=== PATIENT | female | born 1940 | race Caucasian/White ===

== ENCOUNTER → 2018-06-20 10:39 | Outpatient (BNVA) | payer MEDICARE, SELFPAY | PROVIDERS: PCP Internal Medicine; Referring Provider Internal Medicine; Visit Provider Surgery | DX: R19.5 Other fecal abnormalities (principal); I10 Essential (primary) hypertension; K62.5 Hemorrhage of anus and rectum; Z86.010 Personal history of colon polyps | CPT/HCPCS: 99213 ==

== ENCOUNTER 2018-07-20 11:51 | Day surgery (SDC) | payer MEDICARE, SELFPAY ==
[2018-07-20 13:01] VITALS: BP 148/62; PULSE 58; RESP 16; TEMP 36.8; O2SAT 96
[2018-07-20] MEDS: Lactated Ringers 1,000 ML 30 ML IV (13:01)
--- NOTE | 2018-07-20 16:23 | W.COLOREPORT ---
Date of service: 07/20/18 Time of Service: 16:23 Colonoscopy Report Date of procedure: 07/20/18 Pre-op diagnosis general: Heme positive stool Post-op diagnosis procedure note: other (1. Normal colon to the cecum 2. Grade 2 hemorrhoids) Procedure: Colonoscopy to the cecum Surgeon: Ezra Guerrero Anesthesia proc note operative: MAC (Ole Xie CRNA; ASA 3 Mallampati class II) Estimated blood loss (mL): 1 Pathology: none sent Complications: None Disposition: same day Indications: 77-year-old woman referred for rectal bleeding and heme positive stools. Ms. Mack is well-known to me from prior encounters. She reports having had intermittent episodes of bright red blood per rectum that lasted for several weeks. This is resolved but recent fecal occult monitoring did show heme positive stool. Her last colonoscopy was a number years ago, and she had polyps at that time. She denies any abdominal pain, or rectal, anal pain. She does not have a known history of hemorrhoids. Had not had bleeding similar to this prior. She denies any upper GI symptoms she rarely has heartburn which she takes Tums for the discomfort with good effect. She does have a history of GERD for which she is taking ranitidine and has and has no problems. I reviewed the colonoscopy procedure with her, and discussed the risks of the procedure. All her questions were answered to her satisfaction. Consent was obtained to proceed with colonoscopy. Prep: Miralax/Dulcolax (Prep quality excellent) Findings: In examining the colon from the cecum to the anus, no abnormalities were noted of the colon, or rectum. She was noted to have grade 2 hemorrhoids at the anorectal junction. Procedure Description: The patient was seen in the day surgery waiting area. Her identification was confirmed, and procedure checked. She was then brought to the procedure room. Monitoring for telemetry, blood pressure, oxygen saturation, and end tidal CO2 monitoring were applied. An appropriate time out was performed to confirm, identification, allergies, medication, procedure, was performed. Sedation was titrated for affect by the RAILROAD DISPATCHER; Once adequate sedation was achieved, I performed a inspection of the external perineum, and a digitial rectal examination. No significant external abnormalities were noted. On digital rectal examination, there was no blood, no masses, good rectal tone. I advanced the colonoscope from the anus to the cecum under direct visualization. The cecum was identified by the ileal-cecal valve, and the appendiceal orifice. The scope was then withdrawn in circumferential manner from the cecum to the rectum. No abnormalites were noted in the colon. The scope was then withdrawn into the rectum, and retroflexed. No abnormalities were noted of the rectum. At the anorectal junction she was noted to have grade 2 hemorrhoids. The scope was then withdrawn, terminating the procedure. There were no complications during the procedure, and the patient tolerated the procedure well. She was returned to the day surgery recovery area in good condition. Plan: No colonic or rectal source of bleeding was identified she does have hemorrhoids which could have caused heme positive stools and be a source of miles blood.
--- NOTE | 2018-07-20 16:30 | PDOC.DSDIS_ITS ---
Discharge Plan Disposition Patient Disposition: HOME Condition: Good Discharge Details Reason For Visit: Heme positive stools Attending Provider: Ezra Guerrero Primary Care Provider: Jessica Barton Home Meds and New Rx's Prescriptions: Continue aspirin 325 mg tablet 325 mg PO PRN RF: 0 ranitidine HCl 150 MG tablet 150 mg PO PRN RF: 0 estradiol 0.5 MG tablet 0.5 mg PO DAILY RF: 0 levothyroxine 75 MCG tablet 75 mcg PO DAILY RF: 0 citalopram 40 mg Tablet 1 tab PO DAILY RF: 0 metoprolol tartrate 50 mg Tablet 50 mg PO BID RF: 0 hydrochlorothiazide 25 mg Tablet 25 mg PO DAILY RF: 0 cholecalciferol (vitamin D3) [Vitamin D3] 2,000 unit Capsule 2,000 unit PO DAILY RF: 0 Discontinued bisacodyl [Dulcolax (bisacodyl)] 5 mg tablet,delayed release (DR/EC) 10 mg PO BID Qty: 4 RF: 0 polyethylene glycol 3350 [Miralax] 17 gram/dose powder 255 g PO ONCE Qty: 255 RF: 0 Discharge Instructions Instructions: Colonoscopy (DC) Activity:: Activity as Tolerated Diet:: As Tolerated Discharge Orders Discharge Orders: Discharge Order (Routine); Ordered 07/20/18 Ordered By: Ezra Guerrero DS: Diagnosis Discharge Diagnosis (1) Heme + stool: Status: Acute Asessment and Plan: Colonoscopy performed: Colonoscopy Report Date of procedure: 07/20/18 Pre-op diagnosis general: Heme positive stool Post-op diagnosis procedure note: other (1. Normal colon to the cecum 2. Grade 2 hemorrhoids) Procedure: Colonoscopy to the cecum Surgeon: Ezra Guerrero Anesthesia proc note operative: MAC (Ole Xie CRNA; ASA 3 Mallampati class II) Estimated blood loss (mL): 1 Pathology: none sent Complications: None Disposition: same day Indications: 77-year-old woman referred for rectal bleeding and heme positive stools. Ms. Mack is well-known to me from prior encounters. She reports having had intermittent episodes of bright red blood per rectum that lasted for several weeks. This is resolved but recent fecal occult monitoring did show heme positive stool. Her last colonoscopy was a number years ago, and she had polyps at that time. She denies any abdominal pain, or rectal, anal pain. She does not have a known history of hemorrhoids. Had not had bleeding similar to this prior. She denies any upper GI symptoms she rarely has heartburn which she takes Tums for the discomfort with good effect. She does have a history of GERD for which she is taking ranitidine and has and has no problems. I reviewed the colonoscopy procedure with her, and discussed the risks of the procedure. All her questions were answered to her satisfaction. Consent was obtained to proceed with colonoscopy. Prep: Miralax/Dulcolax (Prep quality excellent) Findings: In examining the colon from the cecum to the anus, no abnormalities were noted of the colon, or rectum. She was noted to have grade 2 hemorrhoids at the anorectal junction. Procedure Description: The patient was seen in the day surgery waiting area. Her identification was confirmed, and procedure checked. She was then brought to the procedure room. Monitoring for telemetry, blood pressure, oxygen saturation, and end tidal CO2 monitoring were applied. An appropriate time out was performed to confirm, identification, allergies, medication, procedure, was performed. Sedation was titrated for affect by the CEMENT OR CONCRETE FINISHING SUPERVISOR; Once adequate sedation was achieved, I performed a inspection of the external perineum, and a digitial rectal examination. No significant external abnormalities were noted. On digital rectal examination, there was no blood, no masses, good rectal tone. I advanced the colonoscope from the anus to the cecum under direct visualization. The cecum was identified by the ileal-cecal valve, and the appendiceal orifice. The scope was then withdrawn in circumferential manner from the cecum to the rectum. No abnormalites were noted in the colon. The scope was then withdrawn into the rectum, and retroflexed. No abnormalities were noted of the rectum. At the anorectal junction she was noted to have grade 2 hemorrhoids. The scope was then withdrawn, terminating the procedure. There were no complications during the procedure, and the patient tolerated the procedure well. She was returned to the day surgery recovery area in good condition. Plan: No colonic or rectal source of bleeding was identified she does have hemorrhoids which could have caused heme positive stools and be a source of miles blood.
[2018-07-20 16:44] VITALS: BP 141/59; PULSE 60; RESP 17; TEMP 36.9; O2SAT 96
== END 2018-07-20 16:57 | disposition home or self-care (01) ==
PROVIDERS: PCP Internal Medicine; Visit Provider Surgery
PROC: 0DJD8ZZ Inspection of Lower Intestinal Tract, Via Natural or Artificial Opening Endoscopic (ICD-10-PCS; CPT 45378; principal; 2018-07-20 12:30)
DX: R19.5 Other fecal abnormalities (principal); Z87.19 Personal history of other diseases of the digestive system; K64.1 Second degree hemorrhoids; I10 Essential (primary) hypertension
CPT/HCPCS: 45378

== ENCOUNTER → 2022-04-22 13:00 | Outpatient (BNVA) | payer MEDICARE, SELFPAY | PROVIDERS: PCP Internal Medicine; Referring Provider Internal Medicine; Visit Provider Surgery | DX: K21.9 Gastro-esophageal reflux disease without esophagitis (principal) | CPT/HCPCS: 99203 ==

== ENCOUNTER 2022-05-14 12:49 | Day surgery (SDC) | payer MEDICARE, SELFPAY ==
--- NOTE | 2022-05-14 07:19 | PDOC.DSDIS_ITS ---
Discharge Plan Disposition Patient Disposition: HOME Condition: Good Discharge Details Reason For Visit: Esophagogastroduodenoscopy Attending Provider: Peng Johnson Primary Care Provider: Jessica Barton Home Meds and New Rx's Prescriptions: New pantoprazole [Protonix] 40 mg tablet,delayed release (DR/EC) 40 mg PO DAILY Qty: 90 2RF Rx Instructions: Take 1 tablet every day Continued metoprolol tartrate 50 mg tablet 100 mg PO DAILY citalopram 40 mg tablet 40 mg PO DAILY levothyroxine 75 MCG tablet 75 mcg PO DAILY cholecalciferol (vitamin D3) [Vitamin D3] 50 mcg (2,000 unit) Capsule 2,000 unit PO DAILY hydrochlorothiazide 25 mg Tablet 25 mg PO DAILY Discharge Instructions Instructions: Diet for Stomach Ulcers and Gastritis (ED), Esophagitis (GEN), P eptic Ulcer (DC) Additional Instructions: 1. If tolerated, consume a soft, low fiber diet for 1-2 days. 2[address] Do not drive, drink alcohol, operate machinery, make critical decisions, or do activities that require coordination or balance for 24 hours. 3. You may experience a sore throat for 24 to 48 hours. You may use throat lozenges or gargle with warm salt water to relieve the discomfort. 4. Because air was put into your stomach during the procedure, you may experience some belching. 5. Go directly to the emergency room if you notice any of the following: Develop chills (warm to touch), or if you have a thermometer and your temperature is above 101 Difficulty breathing or difficultly swallowing Persistent vomiting Severe abdominal pain, other than gas cramps Severe chest pain Black, tarry stools Any bleeding ? exceeding one tablespoon 6. Call your physician if the site where your intravenous was started becomes red, swollen, painful, and warm to touch. 7. Your physician has reviewed your pre-procedure medications. Please continue to take those medications as previously ordered. You will be given specific information/education regarding any changes to your medications before leaving. Referrals: Peng Johnson MD [ [facility] STAFF PHYSICIAN] - (3-4 weeks) Activity:: Activity as Tolerated Diet:: As Tolerated Discharge Orders Discharge Orders: Discharge Order (Routine); Ordered 05/14/22 Ordered By: Peng Johnson DS: Diagnosis Discharge Diagnosis (1) Duodenal ulcer: Status: Acute Asessment and Plan: Start Protonix. Take 1 tablet by mouth every day (2) Esophagitis: Status: Acute Asessment and Plan: I will contact you with biopsy results
--- NOTE | 2022-05-14 07:22 | W.PM.ENDDOP ---
Date of service: 05/14/22 Time of Service: 14:08 Endoscopy Report DATE OF PROCEDURE: 05/14/22 PRE-OP DIAGNOSIS: Gastroesophageal reflux disease POST-OP DIAGNOSIS: other (Duodenal ulcer, Vogt's esophagus) PROCEDURE: EGD SURGEON: Peng Johnson ANESTHESIA TYPE: General:No Airway ESTIMATED BLOOD LOSS: 30 PATHOLOGY: other (Random biopsies of stomach antrum and body, biopsies of Vogt's esophagus) COMPLICATIONS: None DISPOSITION: same day INDICATIONS: Babita is a 81-year-old woman with longstanding gastroesophageal reflux disease PROCEDURE DESCRIPTION: After the initiation of monitored anesthetic care, and with the assistance of a bite block, I advanced a standard gastroscope through the mouth past the hypopharynx and into the esophagus.? Under the direct vision of the scope, I advanced down the esophagus into the stomach.? Once I entered the stomach, I performed a brief inspection, followed by retroflexion towards the gastric cardia.? This appeared normal.? After that, I gently advanced the scope around the incisura angularis and examined the pylorus.? This also appeared normal.? Next, I advanced the scope through the pylorus into the duodenum.? The mucosa was pink and healthy appearing.? There was a duodenal ulcer on the anterior wall of the first portion of the duodenum. There was no visible vessel. It was not actively bleeding..? I was able to visualize bile draining into the duodenum through the ampulla Vater. ?Next, I began retracting the endoscope.? I withdrew into the stomach, where I performed random biopsies of the gastric antrum and body.? I then gently desufflated some of the stomach, and withdrew the endoscope into the distal esophagus. The Z-line was irregular at 37 cm and there was a 1.5 centimeters length of Vogt's esophagus. I performed biopsies here. ?Finally, I withdrew the scope along the length of the esophagus taking great care to examine the entirety of the mucosa.? I did not appreciate any abnormalities.
[2022-05-14 12:58] VITALS: BP 154/64; PULSE 58; RESP 18; TEMP 36.7; O2SAT 96
--- NOTE | 2022-05-14 13:09 | W.ANESPRE ---
General Info Date of Service Date Performed: 05/14/22 Height: 5 ft 7 in Weight: 75.807 kg Body Mass Index (BMI): 26.2 Surgical Procedure: Operation Date: 05/14/22 14:35 Proposed Procedure Side Surgeon p Gastroscopy Peng Johnson MD Meds Allergies and Home Medications Allergies Allergy/AdvReac Type Severity Reaction Status Date / Time Environmental Allergy Mild Rhinitis Uncoded 05/13/22 11:09 metals AdvReac Severe Skin Rash Uncoded 05/13/22 11:09 Home Medication Medication Instructions Recorded levothyroxine 75 mcg tablet 75 mcg PO DAILY 11/21/14 hydrochlorothiazide 25 mg tablet 25 mg PO DAILY 07/18/18 citalopram 40 mg tablet 40 mg PO DAILY 04/22/22 metoprolol tartrate 50 mg tablet 100 mg PO DAILY 04/22/22 cholecalciferol (vitamin D3) 50 2,000 unit PO DAILY 05/13/22 mcg (2,000 unit) capsule (Vitamin D3) pantoprazole 40 mg tablet,delayed 40 mg PO DAILY duodenal ulcer #90 05/14/22 release (Protonix) tabs Current Visit Medications: Current Medications Generic Name Dose Route Start Last Admin Trade Name Freq PRN Reason Stop Dose Admin Hyoscyamine Sulfate 0.125 mg 05/14/22 07:21 Hyoscyamine 0.125 Mg Sl/Oral/Chew SL DIRECTED PRN Ringer's Solution 1,000 mls @ 80 mls/hr 05/14/22 06:00 IV 06/12/22 23:59 INFUSION MURIEL IV Miscellaneous Supplies 1 each 05/14/22 06:00 Iv Access IV 06/12/22 23:59 DIRECTED MURIEL Ondansetron HCl 4 mg 05/14/22 07:21 Ondansetron 4 Mg/2 Ml Vial IVP Q4H PRN PRN Nausea / Vomiting Sodium Chloride 0 ml 05/14/22 06:00 Normal Saline Flush 10 Ml Syr IV 06/12/22 23:59 PRN PRN Sodium Chloride 0 ml 05/14/22 06:00 Normal Saline 10 Ml Vial IJ 06/12/22 23:59 DIRECTED PRN Sterile Water 0 ml 05/14/22 06:00 Water,Injection,Sterile 10 Ml Vial IJ 06/12/22 23:59 DIRECTED PRN PFSH Active Problems Active Problems: Problem Status Onset Code GI bleed K92.2 Depression 11/21/14 F32.9 GERD (gastroesophageal reflux disease) 11/21/14 K21.9 Hypertension 11/21/14 I10 Hypothyroid 11/21/14 E03.9 Incontinence of urine in female 03/11/17 R32 Mixed incontinence 11/21/14 N39.46 Heme + stool R19.5 Medical History Medical History (Updated 05/14/22 @ 14:07 by Peng Johnson MD) Essential hypertension Gastroesophageal reflux disease Hypercholesterolemia Hypothyroidism Surgical History Surgical History Abdominal hysterectomy Colonoscopy - IV Sedation H/O colonoscopy (07/20/18) 07/20/18 Dr Guerrero, anorectal junction hemorrhoids. Hx of shoulder replacement RIGHT Oophrectomy, Both , Ectopic Status post excision of lipoma thigh Thyroid Partial Tobacco Smoking/Tobacco Use Status: Former Tobacco Use Alcohol Alcohol Intake: current Alcohol intake frequency: holidays/special occasions only Alcohol type: beer Substance Use Substance use: Never Substance use type: does not use Vital Signs and Lab Results Vital Signs Most Recent Vital Signs in EMR: Most Recent Vital Signs Temp Pulse Resp BP Pulse Ox 36.7 C 58 L 18 154/64 H 96 05/14/22 12:58 05/14/22 12:58 05/14/22 12:58 05/14/22 12:58 05/14/22 12:58 Lab Results Blood Type / Crossmatch: No Data to Display Complete Blood Count: No Data to Display Complete Metabolic Panel: No Data to Display Liver Function Panel: No Data to Display Coagulation Panel: No Data to Display Cardiac Panel: No Data to Display Arterial Blood Gas: No Data to Display Venous Blood Gas: No Data to Display Pancreas Panel: No Data to Display Thyroid Panel: No Data to Display Infectious Disease: No Data to Display Blood Cultures: No Data to Display Toxicology Panel: No Data to Display Anesthesia Assessment and Plan Anesthesia History Personal History: No History of Anesthesia Complications Family History: No Family History of Anesthesia Complications Exercise Tolerance Exercise Tolerance: Metabolic Equivalents>4 Pertinent Negatives Pertinent Negatives: No Symptoms of GERD, No Major Cardiovascular Symptoms or Complaints, No Major Pulmonary Symptoms or Complaints and No History of CVA/TIA Cardiac & Pulmonary Exam Cardiac Exam: Normal S1/S2 Heart Sounds Pulmonary Exam: Clear Bilateral Breath Sounds Implantable Cardiac Device Does patient have a Pacemaker or an ICD?: No Airway Exam Known Difficult Airway: No Mallampati Class: 2 Mouth Opening: Normal (> 3cm) Thyromental Distance: Greater than 3 cm Neck Range of Motion: Full ROM Neck Circumference: Normal Teeth Condition: Removable Dentures/Plates Upper and Removable Dentures/Plates Lower ASA Classification ASA Score: ASA 2 Emergency Case?: No NPO Status NPO Status: NPO Clears >2 hours, Solids >8 hours Anesthesia Plan Resuscitation Status: Full Code Anesthesia Technique: General Anesthesia Airway Planned: Natural Airway Monitors Used: Standard Monitors
[2022-05-14 13:12] VITALS: BMI 26.2
[2022-05-14] MEDS: Lactated Ringers 1,000 ML 80 ML IV (13:25)
--- NOTE | 2022-05-14 13:52 | STOM_PTH ---
PATIENT: Babita Mack LOC: [facility] U#:[id number] AGE/SX: 81/F ROOM: RE05/14/[address]: Peng Johnson MD : 1940 BED: DIS: 05/14/2022 SPEC #: [id number] RECD: 05/14/22 17:13 STATUS: [facility] #: [id number] DB: 05/14/22 13:[address]: Peng Johnson DEPT: Surgical Specimen RECD BY: Dai Arrington ENTERED: 05/14/22 17:14 SP TYPE: STOMACH OTHR DR: Jessica Barton Tissues: 1 - STOMACH BIOPSY 2 - STOMACH BIOPSY 3 - ESOPHAGUS BIOPSY Procedures: GROSS AND MICRO LEVEL 4 Comments: [id number]
[2022-05-14 14:05] VITALS: BP 116/60; PULSE 54; RESP 18; TEMP 36.5; O2SAT 98
[2022-05-14 14:30] VITALS: BP 113/59; PULSE 55; RESP 18; TEMP 36.7; O2SAT 96
--- NOTE | 2022-05-14 14:56 | W.ANESPOSTOP ---
Postoperative Evaluation Date, Time and Location Date Performed: 05/14/22 Time Performed: 14:56 Patient Location: Day Surgery Unit Vital Signs Most Recent Imported Vital Signs: Most Recent Vital Signs Temp Pulse Resp BP Pulse Ox 36.7 C 55 L 18 113/59 L 96 05/14/22 14:30 05/14/22 14:30 05/14/22 14:30 05/14/22 14:30 05/14/22 14:30 Pain Score Most Recent Pain Score: Most Recent Pain Score Pain Level 0 05/14/22 14:30 Assessment Mental Status: Awake (Alert & Oriented to Patient Baseline) Airway and Respiratory Function: Patent airway with normal (patient baseline) respiratory exam Cardiovascular Function: Hemodynamically Stable Hydration Status: Adequately Hydrated Nausea & Vomiting: No Nausea or Vomiting Pain: Pt. Denies Any Pain Peripheral Nerve Block: Patient did not receive a nerve block
== END 2022-05-14 14:53 | disposition home or self-care (01) ==
PROVIDERS: PCP Internal Medicine; Visit Provider Surgery
PROC: 0DJ68ZZ Inspection of Stomach, Via Natural or Artificial Opening Endoscopic (ICD-10-PCS; CPT 43235; principal; 2022-05-14 14:30)
DX: K21.9 Gastro-esophageal reflux disease without esophagitis (principal); K22.70 Barrett's esophagus without dysplasia; K26.9 Duodenal ulcer, unspecified as acute or chronic, without hemorrhage or perforation
CPT/HCPCS: 43239; 88305

== ENCOUNTER 2025-01-24 02:29 | Outpatient (CLI) | payer MEDICARE, SELFPAY ==
--- NOTE | 2025-01-24 11:44 | DI.RAD_ITS ---
Exam(s) RF BARIUM SWALLOW EXAM: RF BARIUM SWALLOW CLINICAL HISTORY: difficulty swallowing,DYSPHAGIA,R13.10 TECHNIQUE: 2D and realtime digital imaging was performed. CONTRAST MATERIAL: Oral barium contrast was administered. COMPARISON: No exams were available for comparison FINDINGS: CHEST X-RAY: The heart and pulmonary vasculature are within normal limits. The lungs are clear. No pleural effusion or pneumothorax is present. The bones are within normal limits for the patient's age. The patient has a right shoulder replacement. ESOPHAGRAM: The esophagus is patent with no evidence for erosions, fold thickening, strictures, or masses. With regards to the motility, there is a normal primary stripping wave. There is mild extrinsic compression on the right aspect of the upper esophagus at about T1. There is a small hiatal hernia. No gastroesophageal reflux is noted. The patient swallowed a barium tablet without difficulty. IMPRESSION: 1. Mild extrinsic compression on the upper esophagus. CT scan of the neck with contrast is recommended for further evaluation. 2. Otherwise unremarkable esophagram. RADIATION DOSE DELIVERED: stefan Meek=19.8 mGy
[2025-01-24] MEDS: Barium Sulfate 700 MG TAB PO (11:46)
[2025-01-24] MEDS: Barium Sulfate 98% W/W 140 ML BTL PO (11:47)
[2025-01-24] MEDS: Barium Sulfate 60% W/V 355 ML BTL PO (11:48)
== END 2025-01-24 02:49 ==
LOC: DI 02:29
PROVIDERS: PCP Internal Medicine; Visit Provider Registered Nurse Maternal Newborn
DX: K22.89 Other specified disease of esophagus (principal)
CPT/HCPCS: 74221; J3490

== ENCOUNTER → 2025-05-28 09:50 | Outpatient (BNVA) | payer MEDICARE, SELFPAY | PROVIDERS: PCP Internal Medicine; Referring Provider Internal Medicine; Visit Provider Surgery | DX: R13.19 Other dysphagia (principal) | CPT/HCPCS: 99214 ==

== ENCOUNTER 2025-06-05 06:06 | Day surgery (SDC) | payer MEDICARE, SELFPAY ==
--- NOTE | 2025-06-04 15:00 | PDOC.DSDIS_ITS ---
Date of service: 06/05/25 Discharge Plan Disposition Patient Disposition: Home Condition: Good Discharge Details Reason For Visit: EGD Attending Provider: Peng Johnson Primary Care Provider: Jessica Barton Home Meds and New Rx's Prescriptions: New pantoprazole 40 mg tablet,delayed release (DR/EC) 40 mg PO DAILY Qty: 90 3RF Continued citalopram 40 mg tablet 40 mg PO DAILY levothyroxine 75 MCG tablet 75 mcg PO DAILY atorvastatin 20 mg tablet 20 mg PO DAILY triamcinolone acetonide 0.1 % cream 1 applic topical DAILY cholecalciferol (vitamin D3) [Vitamin D3] 50 mcg (2,000 unit) Capsule 2,000 unit PO DAILY hydrochlorothiazide 25 mg Tablet 25 mg PO DAILY metoprolol succinate 100 mg tablet extended release 24 hr 100 mg PO DAILY Patient Comments: TAKE 1 TABLET BY MOUTH ONCE DAILY Discharge Instructions Additional Instructions: Babita, as always, it was great to see you. Do feel well after the procedure. There is evidence of inflammation at the lower part of your esophagus where it connects onto your stomach, and I suspect this is the source of the symptoms that you have been feeling. This is most consistent with chronic gastroesophageal reflux disease. Similar to your last EGD, I did several b iopsies of this today. I have also added a prescription for pantoprazole. This is similar to the medication that we talked about in the office, but I think pantoprazole is a little better studied in most large research projects regarding symptomatic gastroesophageal reflux disease and Vogt's esophagus. I did like you to start this medication. It is 1 tablet daily. I have taken the liberty of scheduling a follow-up appointment in our office on June 25 at 9:30 AM. We can talk about other management strategies at that time if the medication is not helping at all. If you need anything in the meantime, obviously please call me. 1. If tolerated, consume a soft, low fiber diet for 1-2 days. [address] not drive, drink alcohol, operate machinery, make critical decisions, or do activities that require coordination or balance for 24 hours. 3. You may experience a sore throat for 24 to 48 hours. You may use throat lozenges or gargle with warm salt water to relieve the discomfort. 4. Because air was put into your stomach during the procedure, you may experience some belching. 5. Go directly to the emergency room if you notice any of the following: Develop chills (warm to touch), or if you have a thermometer and your temperature is above 101 Difficulty breathing or difficultly swallowing Persistent vomiting Severe abdominal pain, other than gas cramps Severe chest pain Black, tarry stools Any bleeding – exceeding one tablespoon 6. Call your physician if the site where your intravenous was started becomes red, swollen, painful, and warm to touch. 7. Your physician has reviewed your pre-procedure medications. Please continue to take those medications as previously ordered. You will be given specific information/education regarding any changes to your medications before leaving. Referrals: Peng Johnson MD [ [facility] STAFF PHYSICIAN, Surgery] - 06/25/25 9:30 am Activity:: Activity as Tolerated Diet:: As Tolerated Discharge Orders Discharge Orders: Discharge Order (Routine); Ordered 06/04/25 Ordered By: Peng Johnson DS: Diagnosis Discharge Diagnosis (1) Dysphagia: Status: Acute Asessment and Plan: Follow-up on pathology results; start PPI with outpatient follow-up
--- NOTE | 2025-06-04 15:01 | W.PM.ENDDOP ---
Date of service: 06/05/25 Time of Service: 07:54 Endoscopy Report DATE OF PROCEDURE: 06/05/25 PRE-OP DIAGNOSIS: Dysphagia POST-OP DIAGNOSIS: other (Vogt's esophagus) PROCEDURE: EGD with biopsies SURGEON: Peng Johnson ANESTHESIA TYPE: General:No Airway ESTIMATED BLOOD LOSS: 10 PATHOLOGY: other COMPLICATIONS: None DISPOSITION: same day INDICATIONS: Babita is a 84-year-old woman with progressive dysphagia PROCEDURE START TIME: 07:34 PROCEDURE END TIME: 07:41 FINDINGS: Vogt's esophagus extending from 35 cm to 27 cm beyond the incisors PROCEDURE DESCRIPTION: After the initiation of anesthesia, and with the assistance of a bite block, I advanced a standard gastroscope through the mouth past the hypopharynx and into the esophagus. Under the direct vision of the scope, I advanced down the esophagus towards the stomach. The upper esophagus is normal. There is mild extrinsic compression of the esophagus around 20 cm past the incisors, but this is easily traversed with the endoscope. Beginning around 27 cm past the incisors there are some extensions of Vogt's esophagus. Narrowband imaging was used to assist with the analysis here. I advanced down to the GE junction which measures about 35 cm past the incisors. There are some dysplastic appearing changes here. I entered the stomach and perform retroflexion. There appears to be a Hill grade 1 hiatal hernia. The stomach was insufflated until all the rugae were obliterated. Examination of the stomach is normal. I can advance past the pylorus into the duodenum which also appears normal and healthy. I saw no evidence of duodenitis or any inflammation or irritation of the duodenum. I then brought the camera back up into the stomach and performed some nondirected biopsies of the gastric antrum and body to rule out Helicobacter pylori. I then brought the camera back up to the GE junction and perform four-quadrant biopsies including the dysplastic appearing segment. All biopsies were performed with cold forceps with minimal bleeding. Next, I advanced the camera back down into the stomach and emptied it completely before removing it along the length of the esophagus 1 last time.
[2025-06-05 06:37] VITALS: BP 150/63; PULSE 1; RESP 16; TEMP 36.5; O2SAT 97
[2025-06-05] MEDS: Lactated Ringers 1,000 ML 80 ML IV (06:54)
--- NOTE | 2025-06-05 07:14 | W.ANESPRE ---
General Info Date of Service Date Performed: 06/05/25 Height: 5 ft Weight: 72.7 kg Body Mass Index (BMI): 31.3 Surgical Procedure: Operation Date: 06/05/25 07:35 Proposed Procedure Side Surgeon p Gastroscopy Peng Johnson MD Meds Allergies and Home Medications Allergies Allergy/AdvReac Type Severity Reaction Status Date / Time Environmental Allergy Mild Rhinitis Uncoded 06/05/25 06:34 metals AdvReac Severe Skin Rash Uncoded 06/05/25 06:34 Home Medication Medication Instructions Recorded levothyroxine 75 mcg tablet 75 mcg PO DAILY 11/21/14 hydrochlorothiazide 25 mg tablet 25 mg PO DAILY 07/18/18 citalopram 40 mg tablet 40 mg PO DAILY 04/22/22 cholecalciferol (vitamin D3) 50 2,000 unit PO DAILY 05/13/22 mcg (2,000 unit) capsule (Vitamin D3) atorvastatin 20 mg tablet 20 mg PO DAILY 11/20/24 triamcinolone acetonide 0.1 % 1 applic topical DAILY 11/20/24 topical cream metoprolol succinate 100 mg 100 mg PO DAILY 06/04/25 tablet,extended release 24 hr Current Visit Medications: Current Medications Generic Name Dose Route Start Last Admin Trade Name Freq PRN Reason Stop Dose Admin Ringer's Solution 1,000 mls @ 80 mls/hr 06/05/25 06:00 06/05/25 06:54 IV 06/05/25 23:59 80 mls/hr INFUSION MURIEL Administration IV Miscellaneous Supplies 1 each 06/05/25 06:00 Iv Access IV 06/05/25 23:59 DIRECTED MURIEL Sodium Chloride 0 ml 06/05/25 06:00 Normal Saline Flush 10 Ml Syr IV 06/05/25 23:59 PRN PRN Sodium Chloride 0 ml 06/05/25 06:00 Normal Saline 10 Ml Vial IJ 06/05/25 23:59 DIRECTED PRN Sterile Water 0 ml 06/05/25 06:00 Water,Injection,Sterile 10 Ml Vial IJ 06/05/25 23:59 DIRECTED PRN PFSH Active Problems Active Problems: Problem Status Onset Code Rhinitis Acute J31.0 Dysphagia Acute R13.10 Esophagitis Acute K20.90 Duodenal ulcer Acute K26.9 Heme + stool Acute R19.5 Mixed incontinence Acute 11/21/14 N39.46 Incontinence of urine in female Acute 03/11/17 R32 Hypothyroid Acute 11/21/14 E03.9 Hypertension Acute 11/21/14 I10 GERD (gastroesophageal reflux disease) Acute 11/21/14 K21.9 Depression Acute 11/21/14 F32.9 GI bleed Acute K92.2 Medical History Medical History Bullous pemphigoid Gastroesophageal reflux disease Hypothyroidism Hypercholesterolemia Essential hypertension Surgical History Surgical History (Updated 06/04/25 @ 10:38 by Jose Mendoza) Hx of thyroidectomy Partial Hx of shoulder replacement RIGHT H/O colonoscopy (07/20/18) 07/20/18 Dr Guerrero, anorectal junction hemorrhoids. Status post excision of lipoma thigh Thyroid Partial , Ectopic Oophrectomy, Both Abdominal hysterectomy Colonoscopy - IV Sedation Tobacco Smoking/Tobacco Use Status: Former Tobacco Use Passive smoking exposure: No Alcohol Alcohol Intake: current Alcohol intake frequency: holidays/special occasions only Alcohol type: beer Substance Use Substance use: Never Substance use type: does not use Vital Signs and Lab Results Vital Signs Most Recent Vital Signs in EMR: Most Recent Vital Signs Temp Pulse Resp BP Pulse Ox 36.5 C 1 L 16 150/63 H 97 06/05/25 06:37 06/05/25 06:37 06/05/25 06:37 06/05/25 06:37 06/05/25 06:37 Anesthesia Assessment and Plan Anesthesia History Personal History: No History of Anesthesia Complications Family History: No Family History of Anesthesia Complications Exercise Tolerance Exercise Tolerance: Metabolic Equivalents<4 Pertinent Negatives Pertinent Negatives: No Major Cardiovascular Symptoms or Complaints, No Major Pulmonary Symptoms or Complaints and No History of CVA/TIA Cardiac & Pulmonary Exam Cardiac Exam: Normal S1/S2 Heart Sounds Pulmonary Exam: Clear Bilateral Breath Sounds Implantable Cardiac Device Does patient have a Pacemaker or an ICD?: No Airway Exam Known Difficult Airway: No Mallampati Class: 2 Mouth Opening: Normal (> 3cm) Thyromental Distance: Greater than 3 cm Neck Range of Motion: Full ROM Neck Circumference: Normal Teeth Condition: Removable Dentures/Plates Upper and Removable Dentures/Plates Lower ASA Classification ASA Score: ASA 2 Emergency Case?: No NPO Status NPO Status: NPO Clears >2 hours, Solids >8 hours Anesthesia Plan Resuscitation Status: Full Code Anesthesia Technique: General Anesthesia Airway Planned: Natural Airway Monitors Used: Standard Monitors
[2025-06-05 07:19] VITALS: BMI 31.3
--- NOTE | 2025-06-05 07:37 | STOM_PTH ---
PATIENT: Babita Mack LOC: [facility] U#:[id number] AGE/SX: 84/F ROOM: RE06/05/[address]: Peng Johnson MD : 1940 BED: DIS: 06/05/2025 SPEC #: [id number] RECD: 06/05/25 12:47 STATUS: [facility] #: [id number] DB: 06/05/25 07:[address]: Peng Johnson DEPT: Surgical Specimen RECD BY: Dai Arrington ENTERED: 06/05/25 12:49 SP TYPE: STOMACH OTHR DR: Jessica Barton Tissues: 1 - STOMACH BIOPSY 2 - STOMACH BIOPSY 3 - ESOPHAGUS BIOPSY 4 - ESOPHAGUS BIOPSY Procedures: GROSS AND MICRO LEVEL 4 Comments: [id number]
[2025-06-05 07:49] VITALS: BP 99/58; PULSE 52; RESP 18; TEMP 36.3; O2SAT 95
--- NOTE | 2025-06-05 08:15 | W.ANESPOSTOP ---
Postoperative Evaluation Date, Time and Location Date Performed: 06/05/25 Time Performed: 07:51 Patient Location: Day Surgery Unit Vital Signs Most Recent Imported Vital Signs: Most Recent Vital Signs Temp Pulse Resp BP Pulse Ox 36.3 C L 52 L 18 99/58 L 95 06/05/25 07:49 06/05/25 07:49 06/05/25 07:49 06/05/25 07:49 06/05/25 07:49 Pain Score Most Recent Pain Score: Most Recent Pain Score Pain Level 0 06/05/25 07:49 Assessment Mental Status: Awake (Alert & Oriented to Patient Baseline) Airway and Respiratory Function: Patent airway with normal (patient baseline) respiratory exam Cardiovascular Function: Hemodynamically Stable Hydration Status: Adequately Hydrated Nausea & Vomiting: No Nausea or Vomiting Pain: Pt. Denies Any Pain Peripheral Nerve Block: Patient did not receive a nerve block
[2025-06-05 08:17] VITALS: BP 129/53; PULSE 52; RESP 16; TEMP 36.1; O2SAT 95
== END 2025-06-05 08:32 | disposition home or self-care (01) ==
LOC: SUR 06:06
PROVIDERS: PCP Internal Medicine; Visit Provider Surgery
PROC: 0DJ68ZZ Inspection of Stomach, Via Natural or Artificial Opening Endoscopic (ICD-10-PCS; CPT 43235; principal; 2025-06-05 07:30)
DX: R13.19 Other dysphagia (principal); K22.70 Barrett's esophagus without dysplasia; K20.80 Other esophagitis without bleeding; B00.89 Other herpesviral infection; K22.89 Other specified disease of esophagus
CPT/HCPCS: 43239; 88305; J2003; J2704

== ENCOUNTER → 2025-06-28 13:14 | Outpatient (BNVA) | payer MEDICARE, SELFPAY | PROVIDERS: PCP Internal Medicine; Referring Provider Internal Medicine; Visit Provider Surgery | DX: Z09 Encounter for follow-up examination after completed treatment for conditions other than malignant neoplasm (principal); K20.80 Other esophagitis without bleeding; B00.89 Other herpesviral infection | CPT/HCPCS: 99213 ==

== ENCOUNTER 2025-07-31 07:52 | Day surgery (SDC) | payer MEDICARE, SELFPAY ==
--- NOTE | 2025-07-30 19:05 | W.ANESPRE ---
General Info Date of Service Date Performed: 07/31/25 Height: 5 ft Weight: 75 kg Body Mass Index (BMI): 32.3 Surgical Procedure: Operation Date: 07/31/25 09:20 Proposed Procedure Side Surgeon p Gastroscopy Peng Johnson MD Meds Allergies and Home Medications Allergies Allergy/AdvReac Type Severity Reaction Status Date / Time Environmental Allergy Mild Rhinitis Uncoded 07/31/25 08:13 metals AdvReac Severe Skin Rash Uncoded 07/31/25 08:13 Home Medication ?Medication ?Instructions ?Recorded levothyroxine 75 mcg tablet 75 mcg PO DAILY 11/21/14 hydrochlorothiazide 25 mg tablet 25 mg PO DAILY 07/18/18 citalopram 40 mg tablet 40 mg PO DAILY 04/22/22 cholecalciferol (vitamin D3) 50 2,000 unit PO DAILY 05/13/22 mcg (2,000 unit) capsule (Vitamin D3) atorvastatin 20 mg tablet 20 mg PO DAILY 11/20/24 triamcinolone acetonide 0.1 % 1 applic topical DAILY 11/20/24 topical cream metoprolol succinate 100 mg 100 mg PO DAILY 06/04/25 tablet,extended release 24 hr pantoprazole 40 mg tablet,delayed 40 mg PO DAILY #90 tabs 06/05/25 release Current Visit Medications: Current Medications Generic Name Dose Route Start Last Admin Trade Name Pawelq PRN Reason Stop Dose Admin Ringer's Solution 1,000 mls @ 80 mls/hr 07/31/25 06:00 IV 07/31/25 23:59 INFUSION MURIEL Sodium Chloride 0 ml 07/31/25 06:00 Normal Saline Flush 10 Ml Syr IV 07/31/25 23:59 PRN PRN Sodium Chloride 0 ml 07/31/25 06:00 Normal Saline 10 Ml Vial IJ 07/31/25 23:59 DIRECTED PRN Sterile Water 0 ml 07/31/25 06:00 Water,Injection,Sterile 10 Ml Vial IJ 07/31/25 23:59 DIRECTED PRN PFSH Active Problems Active Problems: Problem Status Onset Code Herpes simplex esophagitis Acute B00.89, K20.80 Rhinitis Acute J31.0 Dysphagia Acute R13.10 Duodenal ulcer Acute K26.9 Heme + stool Acute R19.5 Mixed incontinence Acute 11/21/14 N39.46 Incontinence of urine in female Acute 03/11/17 R32 Hypothyroid Acute 11/21/14 E03.9 Hypertension Acute 11/21/14 I10 GERD (gastroesophageal reflux disease) Acute 11/21/14 K21.9 Depression Acute 11/21/14 F32.9 GI bleed Acute K92.2 Medical History Medical History Esophagitis Bullous pemphigoid Gastroesophageal reflux disease Hypothyroidism Hypercholesterolemia Essential hypertension Surgical History Surgical History History of esophagogastroduodenoscopy (~06/05/25) biopsies Hx of thyroidectomy Partial Hx of shoulder replacement RIGHT H/O colonoscopy (07/20/18) 07/20/18 Dr Guerrero, anorectal junction hemorrhoids. Status post excision of lipoma thigh Thyroid Partial , Ectopic Oophrectomy, Both Abdominal hysterectomy Colonoscopy - IV Sedation Tobacco Smoking/Tobacco Use Status: Former Tobacco Use Passive smoking exposure: No Alcohol Alcohol Intake: current Alcohol intake frequency: holidays/special occasions only Alcohol type: beer Substance Use Substance use: Never Substance use type: does not use Vital Signs and Lab Results Vital Signs Most Recent Vital Signs in EMR: Temp Pulse Resp BP Pulse Ox 36.5 C 50 L 20 133/61 95 07/31/25 08:18 07/31/25 08:18 07/31/25 08:18 07/31/25 08:18 07/31/25 08:18 Anesthesia Assessment and Plan Anesthesia History Personal History: No History of Anesthesia Complications Family History: No Family History of Anesthesia Complications Exercise Tolerance Exercise Tolerance: Metabolic Equivalents<4 Cardiac & Pulmonary Exam Cardiac Exam: Normal S1/S2 Heart Sounds Pulmonary Exam: Clear Bilateral Breath Sounds Implantable Cardiac Device Does patient have a Pacemaker or an ICD?: No Airway Exam Known Difficult Airway: No Mallampati Class: 2 Mouth Opening: Normal (> 3cm) Thyromental Distance: Greater than 3 cm Neck Range of Motion: Full ROM Neck Circumference: Normal Teeth Condition: Removable Dentures/Plates Upper and Removable Dentures/Plates Lower ASA Classification ASA Score: ASA 2 Emergency Case?: No NPO Status NPO Status: NPO Clears >2 hours, Solids >8 hours Anesthesia Plan Resuscitation Status: Full Code Anesthesia Technique: General Anesthesia Airway Planned: Natural Airway Monitors Used: Standard Monitors Preoperative Comments:: 84 yo for EGD. Sig PMHx: HTN (HCTZ, metoprolol), GERD (pantoprazole), hypothyroid (on replacement). Former smoker (1990). Occ EtOH. Previous Anes: - EGD x 2, prop, natural airway, no issues. - colo, prop, natural airway, no issues. - sling, prop, LMA 4, no issues.
--- NOTE | 2025-07-30 19:58 | PDOC.DSDIS_ITS ---
Date of service: 07/31/25 Discharge Plan Disposition Patient Disposition: Home Condition: Good Discharge Details Reason For Visit: egd Attending Provider: Peng Johnson Primary Care Provider: Jessica Barton Home Meds and New Rx's Prescriptions: Continued citalopram 40 mg tablet 40 mg PO DAILY levothyroxine 75 MCG tablet 75 mcg PO DAILY atorvastatin 20 mg tablet 20 mg PO DAILY triamcinolone acetonide 0.1 % cream 1 applic topical DAILY cholecalciferol (vitamin D3) [Vitamin D3] 50 mcg (2,000 unit) Capsule 2,000 unit PO DAILY hydrochlorothiazide 25 mg Tablet 25 mg PO DAILY metoprolol succinate 100 mg tablet extended release 24 hr 100 mg PO DAILY Patient Comments: TAKE 1 TABLET BY MOUTH ONCE DAILY pantoprazole 40 mg tablet,delayed release (DR/EC) 40 mg PO DAILY Qty: 90 3RF Discharge Instructions Additional Instructions: Babita, it was so good to see you again today. Overall, I am quite relieved that you have been feeling better. There is still some inflammation in the lower part of your esophagus. It certainly better than the last time, but I was hopeful that it would all be resolved by this point. I did some biopsies of this, and I want to see if there is any evidence of that herpes virus still within the tissue. If that is the case, then I would recommend another round of antiviral medications. For right now, I had like you to keep everything the same. I will keep an eye out for these results at the top portion of my follow- up section, and call you and I have that information. Stand Alone Forms: Anesthesia Discharge Inst[facility] Ivan Mcmahan (DSU), Portal Information Activity:: Activity as Tolerated Diet:: As Tolerated Discharge Orders Discharge Orders: Discharge Order (Routine); Ordered 07/30/25 Ordered By: Peng Johnson DS: Diagnosis Discharge Diagnosis (1) Herpes simplex esophagitis: Status: Acute Asessment and Plan: Follow-up on biopsy results
--- NOTE | 2025-07-30 19:59 | W.PM.ENDDOP ---
Date of service: 07/31/25 Time of Service: 09:18 Endoscopy Report DATE OF PROCEDURE: 07/31/25 PRE-OP DIAGNOSIS: herpes esophagitis POST-OP DIAGNOSIS: same PROCEDURE: EGD with biopsies SURGEON: Peng Johnson ANESTHESIA TYPE: General:No Airway ESTIMATED BLOOD LOSS: 10 PATHOLOGY: other (Esophageal biopsies) COMPLICATIONS: None DISPOSITION: same day INDICATIONS: Babita is an 84-year-old woman who is recently been treated for herpes esophagitis. She is here to confirm eradication of the virus FINDINGS: Approximately 3 cm of inflammation at the lower esophagus consistent with previous esophagitis PROCEDURE DESCRIPTION: After the initiation of anesthesia, and with the assistance of a bite block, I advanced a standard gastroscope through the mouth past the hypopharynx and into the esophagus.? I advanced down into the esophagus. The upper, and midesophagus were normal. There are dysplastic changes in the lower portion of the esophagus extending from about 33 cm past the incisors down to the GE junction at 35 cm past the incisors. Features were generally consistent with the previous endoscopy, although said that the involved segment seems to be shorter in length, and a little less inflamed. I performed biopsies of this area using cold forceps with minimal bleeding. I then advanced down into the stomach, and emptied it completely before removing the scope out along the length of the esophagus 1 last time.
[2025-07-31 08:18] VITALS: BP 133/61; PULSE 50; RESP 20; TEMP 36.5; O2SAT 95
[2025-07-31] MEDS: Lactated Ringers 1,000 ML 80 ML IV (08:30)
--- NOTE | 2025-07-31 08:51 | W.PREOPHP ---
Assessment and Plan Assessment and plan (1) Herpes simplex esophagitis: Status: Acute Assessment and plan: We reviewed the plan for a EGD to confirm eradication of esophagitis. History of Present Illness History of Present Illness Chief Complaint: Herpes esophagitis Narrative: Babita is an 84-year-old woman who had been suffering from progressive dysphagia. I performed an EGD that demonstrated esophagitis. Biopsies confirmed the presence of herpes esophagitis, and she was treated. Symptoms have improved, and she is here to evaluate for eradication of the esophagitis. PFSH All Active Problems Herpes simplex esophagitis (Acute) Rhinitis (Acute) Dysphagia (Acute) Duodenal ulcer (Acute) Heme + stool (Acute) Mixed incontinence (Acute 11/21/14) Incontinence of urine in female (Acute 03/11/17) Hypothyroid (Acute 11/21/14) Hypertension (Acute 11/21/14) GERD (gastroesophageal reflux disease) (Acute 11/21/14) Depression (Acute 11/21/14) GI bleed (Acute) Medical History Esophagitis Bullous pemphigoid Gastroesophageal reflux disease Hypothyroidism Hypercholesterolemia Essential hypertension Surgical History History of esophagogastroduodenoscopy (~06/05/25) biopsies Hx of thyroidectomy Partial Hx of shoulder replacement RIGHT H/O colonoscopy (07/20/18) 07/20/18 Dr Guerrero, anorectal junction hemorrhoids. Status post excision of lipoma thigh Thyroid Partial , Ectopic Oophrectomy, Both Abdominal hysterectomy Colonoscopy - IV Sedation Social History Smoking/Tobacco Use Status: Former Tobacco Use Quit Date: 08/09/90 Smoking risk assessment performed?: Yes Alcohol Intake: current Alcohol Intake frequency: holidays/special occasions only Alcohol type: beer Drug use: Never Substance use type: does not use Details: alcohol: three months Housing: house Do you feel safe at home: Yes Do you feel safe in your relationship?: Yes Meds Allergies and Home Medications Allergies Allergy/AdvReac Type Severity Reaction Status Date / Time Environmental Allergy Mild Rhinitis Uncoded 07/31/25 08:13 metals AdvReac Severe Skin Rash Uncoded 07/31/25 08:13 Home Medications ?Medication ?Instructions ?Recorded ?Confirmed ?Type levothyroxine 75 mcg tablet 75 mcg PO DAILY 11/21/14 07/31/25 History hydrochlorothiazide 25 mg tablet 25 mg PO DAILY 07/18/18 07/27/25 History citalopram 40 mg tablet 40 mg PO DAILY 04/22/22 07/31/25 History cholecalciferol (vitamin D3) 50 2,000 unit PO DAILY 05/13/22 07/31/25 History mcg (2,000 unit) capsule (Vitamin D3) atorvastatin 20 mg tablet 20 mg PO DAILY 11/20/24 07/31/25 History triamcinolone acetonide 0.1 % 1 applic topical DAILY 11/20/24 07/31/25 History topical cream metoprolol succinate 100 mg 100 mg PO DAILY 06/04/25 07/31/25 History tablet,extended release 24 hr pantoprazole 40 mg tablet,delayed 40 mg PO DAILY #90 tabs 06/05/25 07/31/25 Rx release Exam Const General: cooperative and not in acute distress Neck Neck: normal visual inspection, no lymphadenopathy and supple Resp Effort & Inspection: normal respiratory effort Auscultation: clear to auscultation bilaterally Cardio Jugular venous pressure: no JVD Rate: regular rate Rhythm: regular rhythm Heart Sounds: S1 normal and S2 normal GI Inspection: normal to inspection Palpation: soft, no guarding, no hernias and nontender Percussion: normal to percussion Auscultation: normal bowel sounds Other: There is a large contusion on the anterior abdominal wall that is secondary to a fall approximately 1.5 weeks ago Neuro General: patient alert, patient awake and patient oriented x3 Psych Appearance: grossly normal Results Last Vital Signs Temp 97.7 F 07/31/25 08:18 Pulse 50 L 07/31/25 08:18 Resp 20 07/31/25 08:18 BP 133/61 07/31/25 08:18 Pulse Ox 95 07/31/25 08:18
[2025-07-31 08:55] VITALS: BMI 32.3
--- NOTE | 2025-07-31 09:07 | ESO_PTH ---
PATIENT: Babita Mack LOC: [facility] U#:[id number] AGE/SX: 84/F ROOM: RE07/31/[address]: Peng Johnson MD : 1940 BED: DIS: 07/31/2025 SPEC #: [id number] RECD: 07/31/25 12:47 STATUS: [facility]LL [facility] #: [id number] DB: 07/31/25 09:[address]: Peng Johnson DEPT: Surgical Specimen RECD BY: Dai Arrington ENTERED: 07/31/25 12:47 SP TYPE: Ewel[place]o JEAN DR: Jessica Barton Tissues: 1 - ESOPHAGUS BIOPSY Procedures: GROSS AND MICRO LEVEL 4 Comments: [id number]
[2025-07-31 09:23] VITALS: BP 130/55; PULSE 50; RESP 18; TEMP 36.3; O2SAT 97
--- NOTE | 2025-07-31 09:32 | W.ANESPOSTOP ---
Postoperative Evaluation Date, Time and Location Date Performed: 07/31/25 Time Performed: 09:32 Patient Location: Day Surgery Unit Vital Signs Most Recent Imported Vital Signs: Most Recent Vital Signs Temp Pulse Resp BP Pulse Ox 36.3 C L 50 L 18 130/55 L 97 07/31/25 09:23 07/31/25 09:23 07/31/25 09:23 07/31/25 09:23 07/31/25 09:23 Pain Score Most Recent Pain Score: Most Recent Pain Score Pain Level 0 07/31/25 09:23 Assessment Mental Status: Awake (Alert & Oriented to Patient Baseline) Airway and Respiratory Function: Patent airway with normal (patient baseline) respiratory exam Cardiovascular Function: Hemodynamically Stable Hydration Status: Adequately Hydrated Nausea & Vomiting: No Nausea or Vomiting Pain: Pt. Denies Any Pain Peripheral Nerve Block: Patient did not receive a nerve block
[2025-07-31 09:54] VITALS: BP 142/53; PULSE 50; RESP 20; TEMP 36.6; O2SAT 96
== END 2025-07-31 10:13 | disposition home or self-care (01) ==
LOC: SUR 07:52
PROVIDERS: PCP Internal Medicine; Visit Provider Surgery
PROC: 0DJ68ZZ Inspection of Stomach, Via Natural or Artificial Opening Endoscopic (ICD-10-PCS; CPT 43235; principal; 2025-07-31 09:15)
DX: K31.A19 Gastric intestinal metaplasia without dysplasia, unspecified site (principal); B00.89 Other herpesviral infection; K20.80 Other esophagitis without bleeding
CPT/HCPCS: 43239; 88305; J2003; J2405; J2704